=== PATIENT | male | born 1960 | race Two or more races ===

== ENCOUNTER 2025-03-13 07:28 | Outpatient (CLI) | payer OTHER | END 2025-03-13 07:30 | disposition home or self-care (01) | LOC: NUCLEAR 07:28 | DX: I25.5 Ischemic cardiomyopathy (principal) ==

== ENCOUNTER 2025-04-19 22:22 | Emergency (ER) | payer OTHER ==
[~2025-04-19] VITALS: Ht 188 cm; Wt 104.3 kg
[2025-04-19] MEDS ORDERED: ACETAMINOPHEN 500 MG GEL..CAP PO STA (23:47)
[2025-04-19] MEDS ORDERED: ACETAMINOPHEN 500 MG GEL..CAP PO ONE (23:51)
[2025-04-20 00:59] LABS: BASO % 0.5 % (0.1-1.2); EOS # 0.13 (0.04-0.54); EOS % 1.6 % (0.7-7.0); LYMPH # 1.99 (1.18-3.74); LYMPH % 24.9 % (19.3-53.1); MEAN PLATELET VOLUME 10.20 fl (9.4-12.4); MONO # 0.69 (0.24-0.82); MONO % 8.6 % (4.7-12.5); NEUT # 5.11 (1.56-6.13); NEUT % 64.0 % (34.0-71.1); RED CELL DISTRIBUTION WIDTH 12.9 % (11.6-14.4)
[2025-04-20 01:04] LABS: URINE APPEARANCE Clear; URINE BILIRRUBIN Negative (NEGATIVE); URINE BLOOD Negative; URINE COLOR Yellow; URINE GLUCOSE Negative (NEGATIVE); URINE KETONE Negative (NEGATIVE); URINE LEUKOCYTE Negative; URINE NITRATE Negative; URINE PROTEIN Negative (NEGATIVE); URINE UROBILINOGEN 0.2 E.U./dl
[2025-04-20 01:07] LABS: URINE BACTERIA 16.7 uL (0.0-1933); URINE EPITHELIAL CELLS 3.0 uL (0.0-38.8); URINE RBC 13.6 uL (0.0-20.8); URINE WBC 6.4 uL (0.0-23.2)
[2025-04-20 01:12] LABS: URINE CAST 0.73 uL (0.0-1.40)
[2025-04-20 01:15] LABS: INR 1.11
[2025-04-20 01:21] LABS: ALT/SGPT 58.0 U/L (12-78); AST/SGOT 21.0 U/L (15-37); BILIRUBIN TOTAL 0.58 mg/dL (0.3-1.2); BUN CREA RATIO 27.0 (7.0-25.0); CREATININE SERUM 0.9 mg/dL (0.70-1.30); GFR 84.95; GLOBULINA 2.6 G/DL (2.4-3.5); GLUCOSE FASTING 126.0 mg/dL (65-100); OSMOLALITY SERUM 289.0 MOSM/KG (275-295)
== END 2025-04-20 07:38 ==
LOC: ER 22:22
PROVIDERS: General Practice
DX: G45.9 Transient cerebral ischemic attack, unspecified (principal); I10 Essential (primary) hypertension; F44.89 Other dissociative and conversion disorders; R25.9 Unspecified abnormal involuntary movements